=== PATIENT | male | born 1945 | race Caucasian/White ===

== ENCOUNTER → 2016-07-06 | Outpatient (CLI) | payer MEDICARE, BC ==
[~2016-07-06] MED LIST: XARELTO15 MG PO
== END ==
LOC: COL.RAD 11:12
DX: R29.898 Other symptoms and signs involving the musculoskeletal system (principal)
CPT/HCPCS: A9585

== ENCOUNTER → 2017-10-15 | Outpatient (CLI) | payer MEDICARE, BC | LOC: COL.RAD 09:00 | DX: I71.4 Abdominal aortic aneurysm, without rupture (principal); Z87.891 Personal history of nicotine dependence ==